=== PATIENT | male | born 1950 | race Caucasian/White ===

== ENCOUNTER 2018-01-11 08:23 | Inpatient (IN) | payer BC ==
[2018-01-11] MEDS ORDERED: Dextrose 50% Syringe 50 ML* 25 GM/50 ML SYRINGE ONE (08:41)
[2018-01-11] MEDS ORDERED: NS 0.9% 1000 ML* 1,000 ML IV ONE (08:48)
[2018-01-11 09:17] LABS: ABS Basophils 0.1 10^3/ul (0-0.2); ABS Eosinophils 0 10^3/ul (0-0.6); ABS Monocytes 0.9 10^3/ul (0-0.8); ABS Neutrophils 14.4 10^3/ul (1.5-7.7); ABS Nucleated RBC 0 10^3/ul; Eosinophil % 0.1 % (0-6); Hematocrit 46 % (42-52); Hemoglobin 15.8 g/dl (14.0-18.0); Lymphocyte % 6.2 % (25-47); Mean Corpuscular HGB Conc 34 g/dl (31-36); Mean Corpuscular Hemoglobin 31 pg (27-31); Mean Corpuscular Volume 90 fL (80-94); Mean Platelet Volume 8.2 um3 (7.4-10.4); Nucleated Red Blood Cells % 0.1; Platelet Count 239 10^3/ul (150-450); Red Blood Count 5.12 10^6/ul (4.0-5.4); Red Cell Distribution Width 14 % (10.5-15); White Blood Count 16.4 10^3/ul (3.5-10.8)
[2018-01-11 09:23] LABS: INR 1.03 (0.77-1.02)
[2018-01-11] MEDS ORDERED: Iodixanol* (CONTRAST) 320 MG/ML 100 ML SDV IV ONE (09:31)
[2018-01-11 09:39] LABS: EGFR Non-African American 64.1 (>60)
--- NOTE | 2018-01-11 09:40 | RAD ---
HISTORY: Neurological changes COMPARISONS: None VIEWS: 2: frontal portable view of the chest at 9:20 AM FINDINGS: LINES AND TUBES: None. CARDIOMEDIASTINAL SILHOUETTE: The cardiomediastinal silhouette is normal for portable technique. PLEURA: The costophrenic angles are sharp. No pleural abnormalities are noted. LUNG PARENCHYMA: The lungs are clear. ABDOMEN: The upper abdomen is clear. There is no subphrenic gas. BONES AND SOFT TISSUES: No bone or soft tissue abnormalities are noted. IMPRESSION: NO ACTIVE CARDIOPULMONARY DISEASE.
[2018-01-11] MEDS ORDERED: Dextrose 50% Syringe 50 ML* 25 GM/50 ML SYRINGE IV PUSH ONE (09:46)
--- NOTE | 2018-01-11 10:13 | RAD ---
HISTORY: Dysarthria, sided weakness COMPARISONS: None TECHNIQUE: Multiple contiguous axial CT scans were obtained of the head, before and after, and of the neck after the administration of nonionic intravenous contrast timed to the systemic arterial phase of contrast enhancement. Coronal and sagittal multiplanar reformations are submitted for review. Multiple 3-D maximum intensity projection reconstructions are also submitted for review. FINDINGS: Evaluation is limited by patient motion artifact. CTA NECK: AORTIC ARCH: There is a normal three-vessel branching pattern of the aortic arch. There is no ostial or proximal stenosis of the cephalic great vessels. RIGHT VERTEBRAL ARTERY: The right vertebral artery is patent along its course, without stenosis. LEFT VERTEBRAL ARTERY: The left vertebral artery is patent along its course, without stenosis. DOMINANCE: The left vertebral artery is dominant. RIGHT COMMON CAROTID ARTERY: The right common carotid artery is patent. The right carotid bifurcation occurs at C2-C3 RIGHT INTERNAL CAROTID ARTERY: There is atheromatous disease of the right carotid bifurcation, without right internal carotid artery stenosis by NASCET criteria. There is calcification of the cavernous segment of the right internal carotid artery. RIGHT EXTERNAL CAROTID ARTERY: The right external carotid artery is unremarkable. LEFT COMMON CAROTID ARTERY: The left common carotid artery is patent. The left carotid bifurcation occurs at C2-C3 LEFT INTERNAL CAROTID ARTERY: There is atheromatous disease of the left carotid bifurcation, without left internal carotid artery stenosis by NASCET criteria. There is calcification of the cavernous segment of the left internal carotid artery. LEFT EXTERNAL CAROTID ARTERY: The left external carotid artery is unremarkable. VENOUS CIRCULATION: The venous system is unremarkable. SALIVARY GLANDS: The parotid glands, submandibular glands, sublingual glands are normal. NASAL CAVITY/NASOPHARYNX: The nasal cavity and nasopharynx are normal. ORAL CAVITY/OROPHARYNX: The oral cavity is obscured by streak artifact from dental amalgam. The visualized oral cavity and oropharynx are unremarkable. LARYNGEAL APPARATUS/HYPOPHARYNX: The laryngeal apparatus and hypopharynx are normal. UPPER AIRWAY/UPPER ESOPHAGUS: The visualized upper airway and esophagus are normal. LUNG APICES: The lung apices are clear. THYROID GLAND: The thyroid gland is normal. LYMPH NODES: There is no lymphadenopathy by size criteria. BONES AND SOFT TISSUES: Degenerative changes are noted along the spine. CTA HEAD: INTRACRANIAL CIRCULATION: There is no aneurysm, vascular malformation, occlusion, or stenosis of the visualized intracranial circulation. Incidentally noted is a small fenestration of the distal basilar artery. The anterior communicating artery complex is clear. The posterior communicating arteries are diminutive, if present. VENOUS CIRCULATION: The venous system is unremarkable. PERFUSION: There is no obvious parenchymal perfusion deficit. HEMORRHAGE/INFARCT: There is no hemorrhage or acute infarct. MASSES/SHIFT: There is no mass or shift. EXTRA-AXIAL SPACES: There are no extra-axial fluid collections. SULCI AND VENTRICLES: The sulci and ventricles are normal in size and position for the patient's stated age. CEREBRUM: There is right temporal encephalomalacia consistent with remote infarct. BRAINSTEM: There are no focal parenchymal abnormalities. CEREBELLUM: There are no focal parenchymal abnormalities. PARANASAL SINUSES: The paranasal sinuses are clear. ORBITS: The orbits are unremarkable. BONES AND SOFT TISSUE: No bone or soft tissue abnormalities are noted. OTHER: There is no abnormal enhancement. IMPRESSION: 1. ATHEROSCLEROSIS. 2. NO INTERNAL CAROTID ARTERY STENOSIS BY NASCET CRITERIA. 3. NO ANEURYSM, VASCULAR MALFORMATION, OCCLUSION, OR STENOSIS OF THE VISUALIZED INTRACRANIAL CIRCULATION.. 4. 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 CPT II Codes: 3100F
[2018-01-11 10:50] LABS: Urine Appearance Clear; Urine Blood Negative (Negative); Urine Color Yellow; Urine Ketones Trace (Negative); Urine Protein 1+(30 mg/dL) (Negative); Urine Specific Gravity 1.028 (1.010-1.030); Urine Urobilinogen Negative (Negative)
--- NOTE | 2018-01-11 11:14 | ED ---
Lisseth Herring Tenzin, scribed for Nicholas Mejia MD on 01/11/18 at 0941 . Neurological HPI - HPI Summary HPI Summary: Pt is a 67 years old male who went to bed last night at his baseline. When he woke up this morning, he had numbness to the left side of his body. This numbness is mostly relieved in the ED. He also noted that he had weakness to his left upper extremity, saying that "I couldn't move my arm." This weakness is mostly relieved in the ED. He notes his speech was a little slurred this morning. He has a history of Diabetes and currently on a new diabetic injector that he gets every month. His blood sugar was measured 41 at arrival. Recently, the patient has been having low sugars. He did not eat this morning. He has chronic lower left extremity pain that got worse few days ago. He is seeing a physical therapist for it. - History of Current Complaint Stated Complaint: STROKE LIKE SYMPTOMS Time Seen by Provider: 01/11/18 08:25 Hx Obtained From: Patient Onset/Duration: Still Present Onset Severity: Moderate Current Severity: Mild Neurological Deficit Location: LUE, LLE Pain Intensity: 5 Pain Scale Used: 0-10 Numeric Character: Weak, Numbness/Tingling, Impaired Speech Associated Signs and Symptoms: Positive: Weakness, Pain, Impaired Speech, Numbness - Allergy/Home Medications Allergies/Adverse Reactions: Allergies Allergy/AdvReac Type Severity Reaction Status Date / Time No Known Allergies Allergy Verified 12/13/13 16:11 Home Medications: Home Medications Exenatide [Byetta] 5 mcg SUBCUT WEEKLY 01/11/18 [History Confirmed 01/11/18] Glimepiride (NF) 4 mg PO BID 01/11/18 [History Confirmed 01/11/18] Insulin GLARGINE(*) [Lantus(*)] 50 units SUBCUT QPM 01/11/18 [History Confirmed 01/11/18] Lovastatin (NF) [Mevacor (NF)] 40 mg PO DAILY 01/11/18 [History Confirmed ] Meloxicam(NF) [Mobic(NF)] 7.5 mg PO BID PRN 01/11/18 [History Confirmed 01/11/18 ] amLODIPine/Benazepril 06/14(NF [Lotrel 06/14(NF)] 1 cap PO DAILY 01/11/18 [ History Confirmed 01/11/18] traMADol TAB* [Ultram*] 50 mg PO Q6HR PRN 01/11/18 [History Confirmed 01/11/18] PMH/Surg Hx/FS Hx/Imm Hx Endocrine/Hematology History: Reports: Hx Diabetes - TYPE II Cardiovascular History: Reports: Hx Hypertension - Cancer History Cancer Type, Location and Year: SKIN CA - Surgical History Surgery Procedure, Year, and Place: FACIAL SKIN CA SURGERY Infectious Disease History: Yes Infectious Disease History: Denies: Traveled Outside the [place] in Last 30 Days - Family History Known Family History: Positive: Other - Pt denies any relevant family history. - Social History Alcohol Use: None Substance Use Type: Reports: None Review of Systems Positive: Other - LLE pain Positive: Weakness - LUE, Numbness - started on the left arm, Slurred Speech - mild. All Other Systems Reviewed And Are Negative: Yes Physical Exam - Summary Physical Exam Summary: Appearance: The patient is well-nourished in no acute distress and in no acute pain. Skin: The skin is warm and dry and skin color reflects adequate perfusion. HEENT: The head is normocephalic and atraumatic. The pupils are equal and reactive. The conjunctivae are clear and without drainage. Nares are patent and without drainage. Mouth reveals moist mucous membranes and the throat is without erythema and exudate. The external ears are intact. The ear canals are patent and without drainage. The tympanic membranes are intact. Neck: the neck is supple with full range of motion and non-tender. There are no carotid bruits. There is no neck vein distension. Respiratory: Chest is non-tender. Lungs are clear to auscultation and breath sounds are symmetrical and equal. Cardiovascular: Heart is regular rate and rhythm. There is no murmur or rub auscultated. There is no peripheral edema and pulses are symmetrical and equal. Abdomen: The abdomen is soft and non-tender. There are normal bowel sounds heard in all four quadrants and there is no organomegaly palpated. Musculoskeletal: There is no back tenderness noted. Extremities are non-tender with full range of motion. There is good capillary refill. There is no peripheral edema or calf tenderness elicited. Neurological: Patient is alert and oriented to person, place and time. Cranial nerves are grossly intact. Deep tendon reflexes are symmetrical and equal in all four extremities. On initial neurologic exam, the patient had dysarthria, ataxia in LUE and LLE, and a slight right-sided facial droop (NIH 4). On second neurologic exam, the patient had right-sided facial droop and ataxia to the LLE. He no longer had ataxia to the LUE or dysarthria (NIH 2). Psychiatric: The patient has an appropriate affect and does not exhibit any anxiety or depression. Triage Information Reviewed: Yes Vital Signs On Initial Exam: Initial Vitals Temp Pulse Resp BP Pulse Ox 98.3 F 101 22 177/94 97 01/11/18 08:35 01/11/18 08:35 01/11/18 08:35 01/11/18 08:35 01/11/18 08:35 Vital Signs Reviewed: Yes Diagnostics - Vital Signs Vital Signs Temp Pulse Resp BP Pulse Ox 01/11/18 08:35 98.3 F 101 22 177/94 97 - Laboratory Lab Results: Lab Results 01/11/18 01/11/18 01/11/18 Range/Units 08:39 09:05 09:05 WBC 16.4 H (3.5-10.8) 10^3/ul RBC 5.12 (4.0-5.4) 10^6/ul Hgb 15.8 (14.0-18.0) g/dl Hct 46 (42-52) % MCV 90 (80-94) fL MCH 31 (27-31) pg MCHC 34 (31-36) g/dl RDW 14 (10.5-15) % Plt Count 239 (150-450) 10^3/ul MPV 8.2 (7.4-10.4) um3 Neut % (Auto) 87.7 H (38-83) % Lymph % (Auto) 6.2 L (25-47) % [place] % (Auto) 5.6 (0-7) % Eos % (Auto) 0.1 (0-6) % Baso % (Auto) 0.4 (0-2) % Absolute Neuts (auto) 14.4 H (1.5-7.7) 10^3/ul Absolute Lymphs (auto) 1.0 (1.0-4.8) 10^3/ul Absolute Monos (auto) 0.9 H (0-0.8) 10^3/ul Absolute Eos (auto) 0 (0-0.6) 10^3/ul Absolute Basos (auto) 0.1 (0-0.2) 10^3/ul Absolute Nucleated RBC 0 10^3/ul Nucleated RBC % 0.1 INR (Anticoag Therapy) 1.03 H (0.77-1.02) APTT 32.0 (26.0-36.3) seconds Sodium (139-145) mmol/L Potassium (3.5-5.0) mmol/L Chloride (101-111) mmol/L Carbon Dioxide (22-32) mmol/L Anion Gap (2-11) mmol/L BUN (6-24) mg/dL Creatinine (0.67-1.17) mg/dL Est GFR ( Amer) (>60) Est GFR (Non-Af Amer) (>60) BUN/Creatinine Ratio (8-20) Glucose (70-100) mg/dL POC Glucose (mg/dL) 41 L (70-100) mg/dL Lactic Acid (0.5-2.0) mmol/L Calcium (8.6-10.3) mg/dL Total Bilirubin (0.2-1.0) mg/dL AST (13-39) U/L ALT (7-52) U/L Alkaline Phosphatase (34-104) U/L Troponin I (<0.04) ng/mL Total Protein (6.4-8.9) g/dL Albumin (3.2-5.2) g/dL Globulin (2-4) g/dL Albumin/Globulin Ratio (1-3) Triglycerides mg/dL Cholesterol mg/dL LDL Cholesterol mg/dL HDL Cholesterol mg/dL Urine Color Urine Appearance Urine pH (5-9) Ur Specific [place] (1.010-1.030) Urine Protein (Negative) Urine Ketones (Negative) Urine Blood (Negative) Urine Nitrate (Negative) Urine Bilirubin (Negative) Urine Urobilinogen (Negative) Ur Leukocyte Esterase (Negative) Urine WBC (Auto) (Absent) Urine RBC (Auto) (Absent) Urine Bacteria (Absent) Hyaline Casts (Absent) Urine Glucose (Negative) 01/11/18 01/11/18 01/11/18 Range/Units 09:05 09:05 10:27 WBC (3.5-10.8) 10^3/ul RBC (4.0-5.4) 10^6/ul Hgb (14.0-18.0) g/dl Hct (42-52) % MCV (80-94) fL MCH (27-31) pg MCHC (31-36) g/dl RDW (10.5-15) % Plt Count (150-450) 10^3/ul MPV (7.4-10.4) um3 Neut % (Auto) (38-83) % Lymph % (Auto) (25-47) % [place] % (Auto) (0-7) % Eos % (Auto) (0-6) % Baso % (Auto) (0-2) % Absolute Neuts (auto) (1.5-7.7) 10^3/ul Absolute Lymphs (auto) (1.0-4.8) 10^3/ul Absolute Monos (auto) (0-0.8) 10^3/ul Absolute Eos (auto) (0-0.6) 10^3/ul Absolute Basos (auto) (0-0.2) 10^3/ul Absolute Nucleated RBC 10^3/ul Nucleated RBC % INR (Anticoag Therapy) (0.77-1.02) APTT (26.0-36.3) seconds Sodium 135 L (139-145) mmol/L Potassium 4.3 (3.5-5.0) mmol/L Chloride 101 (101-111) mmol/L Carbon Dioxide 26 (22-32) mmol/L Anion Gap 8 (2-11) mmol/L BUN 19 (6-24) mg/dL Creatinine 1.14 (0.67-1.17) mg/dL Est GFR ( Amer) 82.4 (>60) Est GFR (Non-Af Amer) 64.1 (>60) BUN/Creatinine Ratio 16.7 (8-20) Glucose 177 H (70-100) mg/dL POC Glucose (mg/dL) (70-100) mg/dL Lactic Acid 1.2 (0.5-2.0) mmol/L Calcium 9.5 (8.6-10.3) mg/dL Total Bilirubin 0.50 (0.2-1.0) mg/dL AST 16 (13-39) U/L ALT 14 (7-52) U/L Alkaline Phosphatase 81 (34-104) U/L Troponin I 0.02 (<0.04) ng/mL Total Protein 7.0 (6.4-8.9) g/dL Albumin 4.3 (3.2-5.2) g/dL Globulin 2.7 (2-4) g/dL Albumin/Globulin Ratio 1.6 (1-3) Triglycerides 98 mg/dL Cholesterol 188 mg/dL LDL Cholesterol 123 mg/dL HDL Cholesterol 45.0 mg/dL Urine Color Yellow Urine Appearance Clear Urine pH 5.0 (5-9) Ur Specific [place] 1.028 (1.010-1.030) Urine Protein 1+(30 mg/dl) A (Negative) Urine Ketones Trace A (Negative) Urine Blood Negative (Negative) Urine Nitrate Negative (Negative) Urine Bilirubin Negative (Negative) Urine Urobilinogen Negative (Negative) Ur Leukocyte Esterase Negative (Negative) Urine WBC (Auto) Trace(0-5/hpf) (Absent) Urine RBC (Auto) Trace(0-2/hpf) (Absent) Urine Bacteria Absent (Absent) Hyaline Casts Present A (Absent) Urine Glucose 3+(>=500 mg/dl) A (Negative) Result Diagrams: 01/11/18 09:05 01/11/18 09:05 Lab Statement: Any lab studies that have been ordered have been reviewed, and results considered in the medical decision making process. - Radiology CXR Xray Interpretation: No Acute Changes - Impression: No active cardiopulmonary disease. Dr. Mejia reviewed the report. Radiology Interpretation Completed By: Radiologist - CT Head/Neck CT Interpretation: No Acute Changes - IMPRESSION: 1. ATHEROSCLEROSIS. 2. NO INTERNAL CAROTID ARTERY STENOSIS BY NASCET CRITERIA. 3. NO ANEURYSM, VASCULAR MALFORMATION, OCCLUSION, OR STENOSIS OF THE VISUALIZED INTRACRANIAL CIRCULATION.. 4. 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 Dr. Mejia reviewed the report. CT Interpretation Completed By: Radiologist - EKG 0906 Cardiac Rate: NL - rate at 95 BPM EKG Rhythm: Sinus Rhythm EKG Interpretation: Pt has RBBB and LAD. NIH Scale - NIH Scale Level of Consciousness: Alert/Keenly Responsive Ask Patient the Month and His/Her Age: Both Correct Ask Pt to Open/Close Eyes and Graphotype Operator/Release Non-Paretic Hand: Both Correctly Best Gaze (Only Horizontal Eye Movement): Normal Visual Field Testing: No Visual Loss Facial Paresis-Pt to Smile & Close Eyes or [place]im[place] Symmetry: Minor Paralysis Motor Function - Right Arm: No Drift-Holds 10 Seconds Motor Function - Left Arm: No Drift-Holds 10 Seconds Motor Function - Right Leg: No Drift-Holds 10 Seconds Motor Function - Left Leg: No Drift-Holds 10 Seconds Limb Ataxia-Must be out of Proportion to Weakness Present: Present in Two Limbs Sensory (Use Pinprick to Test Arms/Legs/Trunk/Face): Normal Best Language (Describe Picture, Name Items): No Aphasia Dysarthria (Read Several Words): Slurs Some Words Extinction and Inattention: No Abnormality Total Score: 4 Course/Dx - Course Course Of Treatment: Mr. Sarabia improved a lot with D50 but did not completely normalize. His dysarthria and dysmetria in the LUE went away but his LLE was still unstable and he still had a slight right facial droop. I'm not sure if this is all hypoglycemia or a TIA. His ED W/U was negative and I spoke with Dr. Fraser and he is being admitted to the hospitalist service. - Diagnoses Provider Diagnoses: Hypoglycemia, TIA (transient ischemic attack) - Physician Notifications Discussed Care Of Patient With: Deanne Fraser Time Discussed With Above Provider: 10:00 Instructed by Provider To: Admit As Inpatient - Dr. Fraser, neurology recommended CTA, CT head, admit to the hospitalist. - Critical Care Time Critical Care Time: 30-74 min Discharge - Sign-Out/Discharge Documenting (check all that apply): Discharge/Admit/Transfer - Discharge Plan Condition: Stable Disposition: ADMITTED TO [facility] Referrals: Jt Cárdenas MD [Primary Care Provider] - - Billing Disposition and Condition Condition: STABLE Disposition: [facility] [place] The documentation as recorded by the Lisseth ureña Tenzin accurately reflects the service I personally performed and the decisions made by me, Nicholas Mejia MD.
[2018-01-11] MEDS ORDERED: Dextrose 50% Syringe 50 ML* 25 GM/50 ML SYRINGE IV PUSH PRN (11:18)
[2018-01-11] MEDS ORDERED: Insulin LISPRO* 1 UNITS UNIT SUBCUT SCH ×2 (11:30→16:00)
[2018-01-11] MEDS ORDERED: hydrALAZINE IV* 20 MG/ML VIAL IV SLOW PU PRN (12:32)
[2018-01-11] MEDS: Heparin VIAL(*) 5000 UNITS/ML VIAL (FIVE THOUSAND) SUBCUT SCH ×2 (13:43→21:55)
[2018-01-11] MEDS: Methocarbamol TAB* 500 MG PO PRN ×3 (13:43→23:46)
[2018-01-11] MEDS: Aspirin EC TAB* 81 MG TAB.EC PO SCH (13:43)
[2018-01-11] MEDS ORDERED: D5W 1/2 NS 1000 ML BAG* 1,000 ML IV SCH (16:00)
[2018-01-11] MEDS ORDERED: D10W 1000 ML BAG* 1,000 ML IV SCH (17:00)
--- NOTE | 2018-01-11 20:07 | HP ---
CC: Dr. Jt Cárdenas; Dr. Lenin Rosas * HISTORY AND PHYSICAL: DATE OF ADMISSION: 01/11/18 PRIMARY CARE PROVIDER: Dr. Jt Cárdenas. [facility]: Dr. Lenin Rosas. ATTENDING PHYSICIAN: Dr. Astrid Dyer * (dictated by Alesia Parmar NP). CHIEF COMPLAINT: Left arm weakness, possible right facial droop, dysarthria, and hypoglycemia. HISTORY OF PRESENT ILLNESS: Mr. Sarabia is a 67-year-old male with past medical history significant for hypertension, hyperlipidemia, insulin-dependent diabetes mellitus type 2, and history of a right temporal CVA according to imaging today, who presented to the emergency room after "thrashing in the bed" at 2 a.m. and noting that he had a right facial droop, dysarthria and left- sided weakness. His called their daughter who is a nurse and recommended they come to the ED for evaluation. The patient states that within the last 4 to 6 weeks he started taking Byetta and has noticed that his glucoses have been in the 90s in the morning. The patient states that he "passed out" for approximately 4 hours yesterday and as his blood sugars have been running in the 50s and 60s, last evening after he took 50 units of Lantus he noted that his glucose was 54. Around 6 pm he ate a bunch of ice cream to try to correct this prior to bed. He then went to bed and woke his up when he was trashing in bed at approximately 2 a.m. When she awoke him, she noticed that he had dysarthria, slight right facial droop and left-sided weakness. The patient reports he has not been taking his blood pressure medicines or his statin. He states that he has not notified his doctor about his blood sugars. He also reports having left lower extremity pain due to a tight IT band and been seeing a message therapist for this. The patient reports chills, indigestion and denies any urinary symptoms, fevers, chest pain, shortness of breath, nausea, vomiting or diarrhea. Due to his symptoms, he was brought to the emergency room for further evaluation. While in the emergency room, the patient was noted to have weakness in his left upper extremity that mostly resolved during his stay. He was also noted to have a slight slurred speech that resolves well in the emergency room. The patient reportedly was also complaining of numbness to the left side of his body that resolved in the emergency room. His blood glucose was 41 on arrival to the emergency room. He received IV dextrose. He had other labs while in the emergency room, significant for a leukocytosis of 16.4. He had a negative urinalysis and EKG without significant findings. He had a negative chest x-ray and a head CTA showing "no stenosis, right temporal artery encephalomalacia consistent with a remote infarct". He had an NIH score of a 4. The hospitalists were asked to evaluate the patient for admission. PAST MEDICAL HISTORY: 1. Hypertension. 2. Hyperlipidemia. 3. Diabetes mellitus type 2. 4. Remote right temporal infarct according to imaging today. PAST SURGICAL HISTORY: Status post excision of basal cell carcinoma x2 to the left side of his nose and face. HOME MEDICATIONS: Include: 1. Vitamin D 2000 units oral daily. 2. Tramadol 50 mg oral every 6 hours as needed for pain. 3. Meloxicam 7.5 mg oral twice daily as needed for pain. 4. Lotrel 10/20 one tablet oral daily, the patient states he has not been taking this. 5. Glimepiride 4 mg oral twice daily. 6. Metformin 1000 mg oral twice daily. 7. Byetta 5 mcg subcutaneous weekly on Fridays. 8. Lantus 50 units subcutaneous every evening. ALLERGIES: No known drug allergies. FAMILY HISTORY: The patient had paternal aunts and uncles with coronary artery disease, maternal grandmother with diabetes, father with a history of brain cancer, and mother with a history of ovarian cancer. SOCIAL HISTORY: The patient denies tobacco, alcohol or recreational drug use. His , Becky Sarabia, will be his surrogate decision maker in the event he is unable to make decisions for himself. REVIEW OF SYSTEMS: I performed an 11-point review of systems. All the pertinent positives and negatives are mentioned in the history of present illness. The remaining review of systems are negative. PHYSICAL EXAMINATION GENERAL APPEARANCE: The patient is alert, pleasant and appears to be in no acute distress. VITAL SIGNS: Temperature 98, heart rate 101, respiratory rate 18, O2 sat 97% on room air, blood pressure 170/98. HEENT: Normocephalic, atraumatic. Pupils are equal and reactive to light. Extraocular movements are intact. RESPIRATORY: There is no accessory muscle use and the lungs are clear to auscultation bilaterally. CARDIOVASCULAR: Regular rate and rhythm. S1 and S2 present. There are no murmurs, rubs, or gallops heard. ABDOMEN: Soft, nondistended, nontender. There are bowel sounds present x4. EXTREMITIES: There is no lower extremity edema. DP and PT pulses are 2+ and symmetric. MUSCULOSKELETAL: There is no clubbing or cyanosis noted. The patient exhibits good strength in all extremities. NEUROLOGICAL: The patient is alert and oriented x4. Cranial nerves II through XII are grossly intact. The patient is able to perform heel from [id number] bilaterally without difficulty, although the left leg is slightly slower than the right leg. He is able to lift both lower extremities off the bed. 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 He has good dorsi and plantarflexion bilaterally, although he has slight weakness noted on the left with dorsi and plantarflexion when compared to the right. His smile is symmetric. His tongue is midline. PSYCHOLOGICAL: The patient is calm and cooperative. SKIN: There are no rashes or abnormalities seen. DIAGNOSTIC STUDIES/LABORATORY DATA: Sodium 135, potassium 4.3, chloride 101, CO2 of 26, BUN 19, creatinine 1.14, glucose 177. White blood cell count 16.4, hemoglobin 15.8, hematocrit 46, platelet count 239. Urinalysis significant for protein 1+, ketones trace, hyaline casts present, glucose 3+. An EKG shows a sinus rhythm, rate of 95, right bundle branch block, and no acute signs of ischemia. There are no previous EKGs for comparison. Chest x-ray from today. Radiologist's impression: No active cardiopulmonary disease. Head and neck CTA from today. Radiologist's impression: Atherosclerosis. No internal carotid artery stenosis by NASCET criteria. No aneurysm, vascular malformation, occlusion or stenosis of the visualized intracranial circulation. Right temporal encephalomalacia consistent with remote infarct. IMPRESSION: Mr. Sarabia is a 67-year-old male with past medical history significant for hypertension, hyperlipidemia, diabetes mellitus, who presented to the emergency room with left-sided weakness and dysarthria and hypoglycemia. He will be admitted as an observation for rule out cerebrovascular accident and hypoglycemia. ASSESSMENT/PLAN: 1. Left-sided weakness with associated dysarthria. At this point, the patient' s symptoms have essentially resolved. The differential diagnosis includes transient ischemic attack versus cerebrovascular accident versus hypoglycemia. The patient's glucose was in the 40s in the emergency room. Neurology will see the patient in consultation. He will have an MRI. We will get an echo with a bubble study. He had fasting lipids while in the emergency room as he had not eaten since 6 p.m. last night. His LDL is 123. The patient reports not taking his statin as he believes that it caused leg weakness, I will resume his lovastatin that he was taking at home previously. He will be started in aspirin. He will have neuro checks q.4 hours, be monitored on telemetry. I am going to hold his antihypertensives to allow for permissive hypertension overnight. 2. Hypoglycemia. I suspect this is secondary to recent changes in the patient' s antidiabetic medications. I am going to hold all of his home medications, check his glucose every 4 hours and do lispro sliding scale and we can resume medications as able. 3. Left sciatic pain. The patient has been following with a massage therapist and has a tight IT band. He will be continued on his home tramadol, meloxicam, and we will start him on a muscle relaxer to see if that helps. He has been encouraged to do some stretches to help loosen up his IT band. 4. Hypertension. The patient has had systolic blood pressures in the 160s to 170s in the emergency room. He reports not taking his Lotrel at home. I am going to continue to hold it at least in the first 24 hours to allow for permissive hypertension and we will have hydralazine as needed available for systolic blood pressures greater than 180 or diastolic blood pressures greater than 100. 5. Leukocytosis. The patient has leukocytosis. He has no signs of infection right now, he had a negative urinalysis and chest xray. This could be a leukemoid reaction. We will continue to monitor him for any signs of infection. I am going to hold on any antibiotics now and we will recheck in the morning. 6. Diabetes mellitus. I am going to hold all of his home medications, check his glucose every 4 hours and do lispro sliding scale and we can resume medications as able. I will add a HgA1C to the ED labs. 7. Fluids, electrolytes and nutrition. He will be on a consistent carbohydrate diet. 8. Code status. Full code. 9. DVT prophylaxis. He is at high risk and will have subcu heparin. 10. Disposition. Observation. TIME SPENT: Time for this admission was approximately 60 minutes, greater than half of that was spent with the patient and family discussing medications, past medical history, the events leading up to his arrival today, and performing a physical examination. The case has been reviewed with the attending, Dr. Dyer, who agrees with the plan of care. Reviewed by WAQAR ASHLEY 01/11/18 2116 [id number]/[facility] #: [id number] PRATIBHA
--- NOTE | 2018-01-11 21:21 | CONS ---
NEUROLOGY CONSULTATION: DATE OF CONSULT: 01/11/18 REASON FOR CONSULT: Left-sided weakness in the setting of hypoglycemia. HISTORY OF PRESENT ILLNESS: Angel Sarabia is a 67-year-old man with a history of diabetes, who was placed on Byetta in the last 6 weeks and presented to the emergency department this morning with new left-sided symptoms. He had last been seen normal reportedly around 9 o'clock last night in my discussion with Dr. Mejia, who contacted me from the emergency room. He woke up with symptoms of dysarthria as well as left arm weakness and numbness. He also has been having pain in his left leg, which apparently is related to some IT band dysfunction. He states that he felt sort of detached from reality during this time as well and initially told me that he had passed out, but it does not sound like he actually lost consciousness. His came into the room and initially called their daughter, who is a nurse, who advised that they call 911 and he was subsequently brought to the hospital where his symptoms have essentially resolved at this point. He was found to have a blood glucose of 41 and with administration of dextrose, his symptoms improved in the emergency department, but did not completely resolve. On Dr. Mejia's exam, he felt that he had some dysarthria as well as some left arm and leg dysmetria and some left facial weakness and he assigned him a score of 4 on the NIH stroke scale. He was not considered a candidate for tPA given the last known normal being 9 p.m. as well as the potential more likely etiology of hypoglycemia producing these symptoms. On my initial discussion with Dr. Mejia, there was no known prior history of stroke or other brain injury, which would predispose him to focal symptoms with hypoglycemia. Otherwise, the patient says that he also passed out yesterday. He certainly has a loss of a chunk of time yesterday, but his reports that when she came back from work, she found him lying on his back on the floor and he was awake and able to talk to her and she initially thought that he was lying there because of the pain in his left leg. He reports though that he must have slid out of his chair at some point and does not recall how he got onto the floor. I do not believe that they checked his blood glucose with this episode yesterday , but he assumes that it was low. His further states that he has had 2 very restless nights of sleep where he was "thrashing and yelling" to the point where she thought the neighbors would hear them. This lasted about half an hour and the night before last he actually vomited and she had to change the sheets. He states that he vaguely remembers thrashing about and her speaking to him, but he does not recall what she said. It is not clear if he was hypoglycemic during this time. There is no prior history of seizures and they deny any past history of stroke. PAST MEDICAL HISTORY: 1. Type 2 diabetes for the past 10 to 15 years. 2. Left IT band dysfunction resulting in left leg pain. 3. Hyperlipidemia. 4. Hypertension. 5. Skin cancer, status post Mohs surgery on the left. HOME MEDICATIONS: 1. Vitamin D 2000 units daily. 2. Tramadol 50 mg q.6 p.r.n. 3. Meloxicam 7.5 mg b.i.d. p.r.n. 4. Amlodipine/benazepril 10/20 mg daily. 5. Glimepiride 4 mg b.i.d. 6. Metformin 1000 mg b.i.d. 7. Lantus 50 units subcu q.p.m. 8. Byetta 5 mcg weekly. 9. Lovastatin is on the home med list, but the patient tells me that he discontinued this secondary to muscle cramps. ALLERGIES: The patient denies any lukas drug allergies, but had muscle cramping with lovastatin. FAMILY HISTORY: There is no known history of stroke. His father of brain cancer and mother of ovarian cancer. There is some remote history of heart disease, but in aunts and uncles in their 80s. SOCIAL HISTORY: He denies alcohol use or tobacco use or illicit drug use. 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 He is and lives with his . His daughter who was present is an RN. REVIEW OF SYSTEMS: There has been no recent systemic illness or infection. He snores at night, but his is not sure if he has apneas. In the past, it was recommended that he have a sleep study, but he did not follow through with that. He has been noting intermittent problems with his blood sugar since starting Byetta and dropped 16 pounds in the past 6 weeks as well. In addition , his appetite has been decreased since being on Byetta. PHYSICAL EXAM: Vital Signs: Temperature 98.1, blood pressure 179/96, heart rate 106, oxygen saturation 99% on room air. His telemetry has shown sinus tachycardia; no evidence of atrial fibrillation at this point. On general exam, he is a pleasant man, in no acute distress. He is morbidly obese with a very thick neck. His heart is tachycardic, but without any obvious murmurs. The lungs were clear to auscultation bilaterally. He was a bit sweaty and at the time of my evaluation he had just had a blood glucose by fingerstick of 21 and had been given some orange juice. He did not reportedly have any recurrence of left- sided focal symptoms with this hypoglycemia. His skin is intact. He is lying in the bed with a pillow under his left leg because of his leg pain. On neurologic examination, he is fully awake, alert, and oriented. He had some difficulty recalling certain details of his history such as how long he has had the leg pain and initially stated it was 2 weeks, but his family states that it has been longer than that. His speech was fluent without any dysarthria or aphasia. He was fully oriented. On cranial nerve examination, pupils were 3 to 2 mm bilaterally. Versions were full without nystagmus. Gonzalez were full to confrontation with no extinction to double simultaneous stimulation. Facial sensation was full and symmetric. His face did show slight asymmetry with a deeper nasolabial fold on the left, but the family actually reports that this is related to his previous Mohs surgery and that his face appears at his baseline to them. There was equal strength bilaterally with cheek puff, eye closure and forehead wrinkling as well as smile. Hearing was intact to finger rub. The palate elevates symmetrically and the tongue is midline. On motor examination, he has normal bulk and tone in the upper and lower extremities. Strength is full proximally and distally with no pronator drift. Sensation was intact to light touch and temperature in the upper and lower extremities. Reflexes were 2+ in the upper extremities and knees, absent at the ankles. Toes were downgoing. [id number] and [id number] were intact without ataxia. I did not ambulate him. DIAGNOSTIC STUDIES/LAB DATA: Hemoglobin A1c 7.2%. Lipid studies show triglycerides of 98, total cholesterol 188, HDL 45, LDL 123. His CBC was notable for a white blood cell count of 16.4 with 87% neutrophils and absolute neutrophil count of 14.4. His INR was 1.03. Chemistry panel on his admission showed a sodium of 135, initial glucose of 44 which on his serum study after replacement with dextrose was 177. Normal liver functions. Lactate of 1.2. As mentioned, his glucose was 21, rechecked at 38 and then after orange juice and dextrose was 117, now most recently 70. His urinalysis showed 1+ protein, trace ketones, and 3+ glucose. I reviewed his CTA as well as his brain CT, which was notable for apparent old infarct in the right posterior temporal region. The CT angiogram showed no hemodynamically significant stenosis, but there was atheromatous disease in the bilateral internal carotid arteries including in the intracranial portions. There was no significant disease in the posterior circulation. IMPRESSION AND PLAN: Angel Sarabia is a 67-year-old man with a history of diabetes who has recently had difficulties with hypoglycemia and presented this morning with left-sided weakness and sensory changes, which have resolved in the setting of improved glucose. I note that he did have a recurrent episode of hypoglycemia where he did not have recurrent symptoms on the left side, but this was caught rather quickly and it is unclear how long he was hypoglycemic at home before he began experiencing these left-sided symptoms. I also note that he has had some strange episodes at night where his describes thrashing and yelling as well as vomiting, which is very out of character for him. While these symptoms could be attributable to symptomatic hypoglycemia, I discussed with the patient and his family that the presence of focal symptoms in the setting of hypoglycemia is unusual and we should look further into a transient ischemic attack workup. I note that his CT scan does suggest the presence that he may have had asymptomatic infarct at some point in the past and we will look further into this with MRI scan of the brain as well as transthoracic echocardiogram. I recommend that he start aspirin 81 mg daily. I also question whether this odd behavior in his sleep could have been a provoked seizure in the setting of symptomatic hypoglycemia. I think the first thing to do is to get his glucose regulated and if he were to have another episode like that during sleep without hypoglycemia, then certainly he should have an EEG. As an outpatient, he should have a sleep study as he is set up for sleep apnea. Thank you for this consultation. Further recommendations pending his testing. [id number]/[facility] #: [id number] PRATIBHA
[2018-01-11] MEDS: traMADol TAB* 50 MG PO PRN (22:04)
[2018-01-12] MEDS: traMADol TAB* 50 MG PO PRN (03:54)
[2018-01-12] MEDS: Heparin VIAL(*) 5000 UNITS/ML VIAL (FIVE THOUSAND) SUBCUT SCH ×3 (06:14→22:01)
[2018-01-12 08:00] LABS: ABS Basophils 0 10^3/ul (0-0.2); ABS Eosinophils 0.2 10^3/ul (0-0.6); ABS Monocytes 1.2 10^3/ul (0-0.8); ABS Neutrophils 8.7 10^3/ul (1.5-7.7); ABS Nucleated RBC 0 10^3/ul; Eosinophil % 1.4 % (0-6); Hematocrit 43 % (42-52); Hemoglobin 14.5 g/dl (14.0-18.0); Lymphocyte % 16.3 % (25-47); Mean Corpuscular HGB Conc 34 g/dl (31-36); Mean Corpuscular Hemoglobin 31 pg (27-31); Mean Corpuscular Volume 90 fL (80-94); Mean Platelet Volume 8.9 um3 (7.4-10.4); Nucleated Red Blood Cells % 0; Platelet Count 204 10^3/ul (150-450); Red Blood Count 4.75 10^6/ul (4.0-5.4); Red Cell Distribution Width 14 % (10.5-15); White Blood Count 12.1 10^3/ul (3.5-10.8)
[2018-01-12] MEDS: Cholecalciferol TAB* 1000 UNITS PO SCH (10:01)
[2018-01-12] MEDS: Methocarbamol TAB* 500 MG PO PRN (10:01)
[2018-01-12] MEDS: Atorvastatin* 10 MG TAB PO SCH (10:01)
[2018-01-12] MEDS: Aspirin EC TAB* 81 MG TAB.EC PO SCH (10:01)
--- NOTE | 2018-01-12 10:03 | PN ---
Subjective Date of Service: 01/12/18 Interval History: Mr. Sarabia reports doing better today. He still has intermittent LLE muscle spasms, but getting better compared to yesterday. Denies dizziness, visual changes, nausea, vomiting, weakness, chest pain or SOB. His POC blood glucose has been in a decent range with all his Lantus and oral hypoglycemic agents on hold. His blood glucose check this AM with 230, D10 0.9% NS was discontinued. He requested some meds to help him with muscle spasms. Otherwise, he has no new complaints. I was called by his nurse, blood glucose still running high, provided coverage with Lispro per sliding scale. Seen by neurology, await brain MRI in AM. Family History: Unchanged from Admission Social History: Unchanged from Admission Past Medical History: Unchanged from Admission Objective Active Medications: Aspirin (Aspirin Ec Tab*) 81 mg PO DAILY [facility] Last Admin: 01/11/18 13:43 Dose: 81 mg Atorvastatin Calcium (Lipitor*) 10 mg PO DAILY [facility] PRN Reason: Protocol Cholecalciferol (Vitamin D Tab*) 2,000 units PO DAILY [facility] Cyclobenzaprine HCl (Flexeril Tab*) 10 mg PO TID PRN PRN Reason: SPASMS Dextrose (D50w Syringe 50 Ml*) 12.5 gm IV PUSH .FOR FS < 60 - SS PRN PRN Reason: FS < 60 Last Admin: 01/11/18 15:37 Dose: 12.5 gm Heparin Sodium (Porcine) (Heparin Vial(*)) 5,000 units SUBCUT Q8HR [facility] Last Admin: 01/12/18 06:14 Dose: 5,000 units Hydralazine HCl (Apresoline Iv*) 5 mg IV SLOW PU Q6H PRN PRN Reason: BLOOD PRESSURE Dextrose (D10w 1000 Ml Bag*) 1,000 mls @ 50 mls/hr IV PER RATE [facility] Last Admin: 01/11/18 17:24 Dose: 50 mls/hr Tramadol HCl (Ultram*) 50 mg PO Q6HR PRN PRN Reason: PAIN Last Admin: 01/12/18 03:54 Dose: 50 mg Vital Signs - 8 hr 01/12/18 01/12/18 01/12/18 02:35 03:43 03:54 Temperature 98.4 F Pulse Rate 93 Respiratory 20 20 20 Rate Blood Pressure 175/76 (mmHg) O2 Sat by Pulse 97 Oximetry 01/12/18 01/12/18 03:57 06:16 Temperature Pulse Rate Respiratory 18 Rate Blood Pressure 158/72 (mmHg) O2 Sat by Pulse Oximetry Oxygen Devices in Use Now: None Appearance: Obese middle aged male, appears comfortable and in NAD Eyes: No Scleral Icterus, PERRLA Ears/Nose/Mouth/Throat: Clear Oropharnyx, Mucous Membranes Moist Neck: NL Appearance and Movements; NL JVP, Trachea Midline Respiratory: Symmetrical Chest Expansion and Respiratory Effort, Clear to Auscultation Cardiovascular: NL Sounds; No Murmurs; No JVD, RRR Abdominal: NL Sounds; No Tenderness; No Distention Extremities: No Edema, No Clubbing, Cyanosis Skin: No Rash or Ulcers Neurological: Alert and Oriented x 3, NL Sensation, NL Muscle Strength and Tone Nutrition: Taking PO's Result Diagrams: 01/12/18 06:07 01/11/18 09:05 Additional Lab and Data: Lab Results 01/11/18 01/11/18 01/11/18 Range/Units 08:39 09:05 09:05 WBC 16.4 H (3.5-10.8) 10^3/ul RBC 5.12 (4.0-5.4) 10^6/ul Hgb 15.8 (14.0-18.0) g/dl Hct 46 (42-52) % MCV 90 (80-94) fL MCH 31 (27-31) pg MCHC 34 (31-36) g/dl RDW 14 (10.5-15) % Plt Count 239 (150-450) 10^3/ul MPV 8.2 (7.4-10.4) um3 Neut % (Auto) 87.7 H (38-83) % Lymph % (Auto) 6.2 L (25-47) % [place] % (Auto) 5.6 (0-7) % Eos % (Auto) 0.1 (0-6) % Baso % (Auto) 0.4 (0-2) % Absolute Neuts (auto) 14.4 H (1.5-7.7) 10^3/ul Absolute Lymphs (auto) 1.0 (1.0-4.8) 10^3/ul Absolute Monos (auto) 0.9 H (0-0.8) 10^3/ul Absolute Eos (auto) 0 (0-0.6) 10^3/ul Absolute Basos (auto) 0.1 (0-0.2) 10^3/ul Absolute Nucleated RBC 0 10^3/ul Nucleated RBC % 0.1 INR (Anticoag Therapy) 1.03 H (0.77-1.02) APTT 32.0 (26.0-36.3) seconds Sodium (139-145) mmol/L Potassium (3.5-5.0) mmol/L Chloride (101-111) mmol/L Carbon Dioxide (22-32) mmol/L Anion Gap (2-11) mmol/L BUN (6-24) mg/dL Creatinine (0.67-1.17) mg/dL Est GFR ( Amer) (>60) Est GFR (Non-Af Amer) (>60) BUN/Creatinine Ratio (8-20) Glucose (70-100) mg/dL POC Glucose (mg/dL) 41 L (70-100) mg/dL Lactic Acid (0.5-2.0) mmol/L Calcium (8.6-10.3) mg/dL Total Bilirubin (0.2-1.0) mg/dL AST (13-39) U/L ALT (7-52) U/L Alkaline Phosphatase (34-104) U/L Troponin I (<0.04) ng/mL Total Protein (6.4-8.9) g/dL Albumin (3.2-5.2) g/dL Globulin (2-4) g/dL Albumin/Globulin Ratio (1-3) Triglycerides mg/dL Cholesterol mg/dL LDL Cholesterol mg/dL HDL Cholesterol mg/dL Urine Color Urine Appearance Urine pH (5-9) Ur Specific [place] (1.010-1.030) Urine Protein (Negative) Urine Ketones (Negative) Urine Blood (Negative) Urine Nitrate (Negative) Urine Bilirubin (Negative) Urine Urobilinogen (Negative) Ur Leukocyte Esterase (Negative) Urine WBC (Auto) (Absent) Urine RBC (Auto) (Absent) Urine Bacteria (Absent) Hyaline Casts (Absent) Urine Glucose (Negative) 01/11/18 01/11/18 01/11/18 Range/Units 09:05 09:05 10:27 WBC (3.5-10.8) 10^3/ul RBC (4.0-5.4) 10^6/ul Hgb (14.0-18.0) g/dl Hct (42-52) % MCV (80-94) fL MCH (27-31) pg MCHC (31-36) g/dl RDW (10.5-15) % Plt Count (150-450) 10^3/ul MPV (7.4-10.4) um3 Neut % (Auto) (38-83) % Lymph % (Auto) (25-47) % [place] % (Auto) (0-7) % Eos % (Auto) (0-6) % Baso % (Auto) (0-2) % Absolute Neuts (auto) (1.5-7.7) 10^3/ul Absolute Lymphs (auto) (1.0-4.8) 10^3/ul Absolute Monos (auto) (0-0.8) 10^3/ul Absolute Eos (auto) (0-0.6) 10^3/ul Absolute Basos (auto) (0-0.2) 10^3/ul Absolute Nucleated RBC 10^3/ul Nucleated RBC % INR (Anticoag Therapy) (0.77-1.02) APTT (26.0-36.3) seconds Sodium 135 L (139-145) mmol/L Potassium 4.3 (3.5-5.0) mmol/L Chloride 101 (101-111) mmol/L Carbon Dioxide 26 (22-32) mmol/L Anion Gap 8 (2-11) mmol/L BUN 19 (6-24) mg/dL Creatinine 1.14 (0.67-1.17) mg/dL Est GFR ( Amer) 82.4 (>60) Est GFR (Non-Af Amer) 64.1 (>60) BUN/Creatinine Ratio 16.7 (8-20) Glucose 177 H (70-100) mg/dL POC Glucose (mg/dL) (70-100) mg/dL Lactic Acid 1.2 (0.5-2.0) mmol/L Calcium 9.5 (8.6-10.3) mg/dL Total Bilirubin 0.50 (0.2-1.0) mg/dL AST 16 (13-39) U/L ALT 14 (7-52) U/L Alkaline Phosphatase 81 (34-104) U/L Troponin I 0.02 (<0.04) ng/mL Total Protein 7.0 (6.4-8.9) g/dL Albumin 4.3 (3.2-5.2) g/dL Globulin 2.7 (2-4) g/dL Albumin/Globulin Ratio 1.6 (1-3) Triglycerides 98 mg/dL Cholesterol 188 mg/dL LDL Cholesterol 123 mg/dL HDL Cholesterol 45.0 mg/dL Urine Color Yellow Urine Appearance Clear Urine pH 5.0 (5-9) Ur Specific [place] 1.028 (1.010-1.030) Urine Protein 1+(30 mg/dl) A (Negative) Urine Ketones Trace A (Negative) Urine Blood Negative (Negative) Urine Nitrate Negative (Negative) Urine Bilirubin Negative (Negative) Urine Urobilinogen Negative (Negative) Ur Leukocyte Esterase Negative (Negative) Urine WBC (Auto) Trace(0-5/hpf) (Absent) Urine RBC (Auto) Trace(0-2/hpf) (Absent) Urine Bacteria Absent (Absent) Hyaline Casts Present A (Absent) Urine Glucose 3+(>=500 mg/dl) A (Negative) Microbiology and Other Data: . Diagnostic Imaging: Patient Name: NHAN SARABIA Medical Record#: [id number] [facility]ing Physician: [id number] : 1950 Age: 67 Sex: M Location: EMERGENCY DEPARTMENT Exam Date: 01/11/1851 ADM Status: [facility] ER Order Information: CTA HEAD/NECK Accession Number: [id number] CPT: 58327 HISTORY: Dysarthria, sided weakness COMPARISONS: None TECHNIQUE: Multiple contiguous axial CT scans were obtained of the head, before and after, and of the neck after the administration of nonionic intravenous contrast timed to the systemic arterial phase of contrast enhancement. Coronal and sagittal multiplanar reformations are submitted for review. Multiple 3-D maximum intensity projection reconstructions are also submitted for review. FINDINGS: Evaluation is limited by patient motion artifact. CTA NECK: [facility] Patient Name:NHAN SARABIA MR:[id number] : 1950 [employer] TISSUES: Degenerative changes are noted along the spine. CTA HEAD: IMPRESSION: 1. ATHEROSCLEROSIS. 2. NO INTERNAL CAROTID ARTERY STENOSIS BY NASCET CRITERIA. 3. NO ANEURYSM, VASCULAR MALFORMATION, OCCLUSION, OR STENOSIS OF THE VISUALIZED INTRACRANIAL CIRCULATION.. 4. 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 CPT II Codes: 3100F <Electronically signed by Rober Quintero MD in [place]> 01/11/18 1009 Dictated By: Rober Quintero MD Dictated Date/Time: 01/11/18 1009 Transcribed Date/Time: 01/11/18 100 Copy to: EKG Data: . Assess/Plan/Problems-Billing Assessment: A 67 y/o male with PMHx HTN, HLD and DM, who presented to ED with left sided weakness, dysarthria and hypoglycemia, admitted for observation and to rule out CVA. - Patient Problems (1) Weakness Current Visit: Yes Status: Acute Comment: - Symptoms esentially resolved - Lost likely secondary to hypoglycemia - Patient with some changes in his diabetic medicine past 6 weeks. - Neurology consult appreciated, MRI scheduled for tomorrow - Continue nuerologic checks every 4 hours, no changes overnight. (2) Hypoglycemia Current Visit: Yes Status: Acute Comment: - Corrected with D10 0.9% NS, now d/c'ed - POC blood glucose checks qACHS. now with hyperglycemia - Will cover with Lispro per SS (3) Hypertension Current Visit: Yes Status: Acute Comment: - Continue Amlodipine - stable at present time (4) Left sided sciatica Current Visit: Yes Status: Acute Comment: - LLE muscle spasms of unclear etiology - Flexeril helps, will continue (5) Diabetes Current Visit: Yes Status: Acute Comment: - Better glycemic control with short acting Lispro per SS - Will likely to d/c Glyburide upon discharge - F/U with Dr. Rosas (6) Leukocytosis Current Visit: Yes Status: Acute Comment: - Likely stress related, now resolving (7) DVT prophylaxis Current Visit: Yes Status: Acute Comment: - subQ Heparin (8) Full code status Current Visit: Yes Status: Acute Status and Disposition: Inpatient. Anticipate discharge when medically stable.
--- NOTE | 2018-01-12 12:03 | ECHO ---
Patient: NHAN FREEMAN [facility] Rec#: [id number] : 1950 Date: 01/12/2018 Age: 67y Height: 170.18 cm / 67.0 in Weight: 107.95 kg / 237.9 lbs Sex: M Admit Date#: 01/11/2018 Referring: Alesia Ambriz NP Reading: Jhony Aldana MD [employer]: Stephanie Schilling RDCS Transthoracic Echocardiogram Findings History: HTN,DM,temporal infarct. Technical Comments: The study quality is fair. Completed at 1155. The study is technically limited due to patient body habitus. Left Ventricle: The left ventricular chamber size is normal. Mild to moderate concentric left ventricular hypertrophy is observed. Global left ventricular wall motion and contractility are within normal limits. There is normal left ventricular systolic function. The estimated ejection fraction is 55-60%. Abnormal left ventricular diastolic filling is observed, consistent with impaired relaxation. Left Atrium: The left atrial chamber size is normal. Right Ventricle: The right ventricular cavity size is normal. The right ventricular global systolic function is normal. Right Atrium: The right atrial cavity size is normal. A patent foramen ovale is not demonstrated with color Doppler and agitated contrast. Aortic Valve: The aortic valve structure is not well visualized. The aortic valve is trileaflet. There is no evidence of aortic valve thickening. There is no evidence of aortic regurgitation. There is no evidence of aortic stenosis. Mitral Valve: The mitral valve leaflets appear normal. There is a trace of mitral regurgitation. Tricuspid Valve: The tricuspid valve leaflets are normal. There is a physiologic tricuspid regurgitation. Unable to estimate the right ventricular systolic pressure. Pulmonic Valve: The pulmonic valve appears normal in structure and function. There is no evidence of pulmonic regurgitation. There is no pulmonic stenosis. Pericardium: There is no significant pericardial effusion. A pericardial fat pad is visualized. Aorta: There is no dilatation of the ascending aorta. There is no dilatation of the aortic arch. There is no dilation of the aortic root. Pulmonary Artery: The main pulmonary artery is not well visualized. Venous: The venous system is not well visualized. Contrast: Normal saline was used as contrast for the bubble study. Intravenous contrast was used to help determine presence of intracardiac shunting. Conclusions There is normal left ventricular systolic function. The estimated ejection fraction is 55-60%. Global left ventricular wall motion and contractility are within normal limits. Mild to moderate concentric left ventricular hypertrophy is observed. Abnormal left ventricular diastolic filling is observed, consistent with impaired relaxation. Normal cardiac chamber sizes. Functionally benign heart valves. A patent foramen ovale is not demonstrated with color Doppler and agitated contrast. There is no prior echocardiogram available to compare with at this time. Measurements Name Value Normal Range RVIDd (AP) 2D 2.9 cm (0.9 - 2.6) RVDdMajor (2D) 2.9 cm (2.2 - 4.4) RAd ISD 4CH 4.9 cm (3.4 - 4.9) RA (A4C)W 2.9 cm (2.9 - 4.6) IVSd (2D) 1.3 cm (0.6 - 1) LVPWd (2D) 1.4 cm (0.6 - 1) LVIDd (2D) 3.7 cm (3.6 - 5.4) LVIDs (2D) 2.4 cm - LV FS (2D) 34 % (25 - 45) Aortic Annulus 1.9 cm (1.4 - 2.6) Ao root diameter (2D) 3.4 cm (2.1 - 3.5) Ascending Ao 3 cm (2.1 - 3.4) Aortic arch 2.9 cm (1.8 - 3.4) Descending Ao 0.5 cm - LA dimension (AP) 2D 4 cm (2.3 - 3.8) LAd ISD 4CH 4.9 cm (2.9 - 5.3) LA ISD 4CH W 4.1 cm (2.5 - 4.5) Name Value Normal Range LA ESV SP 4CH (A/L) 52 ml - LA ESV SP 2CH (A/L) 35 ml - LA ESV BP (A/L) 45 ml - LA ESV BP (A/L) index 20.81 ml/m2 - LA ESV SP 4CH (MOD) 49 ml - LA ESV SP 2CH (MOD) 33 ml - Name Value Normal Range MV E-wave Vmax 1 m/sec - MV deceleration time 124 msec - MV A-wave Vmax 1.5 m/sec - MV E:A ratio 0.67 ratio - LV septal e' Vmax 0.1 m/sec - LV lateral e' Vmax 0.08 m/sec - LV E:e' septal ratio 10 ratio - LV E:e' lateral ratio 12.5 ratio - Name Value Normal Range AV Vmax 1.4 m/sec - AV VTI 24.8 cm - AV peak gradient 8.15 mmHg - AV mean gradient 4.52 mmHg - LVOT Vmax 1.1 m/sec - LVOT VTI 16.4 cm - LVOT peak gradient 4.75 mmHg - LVOT mean gradient 1.86 mmHg - Name Value Normal Range PV Vmax 0.7 m/sec - PV peak gradient 1.74 mmHg -
[2018-01-12] MEDS ORDERED: Dextrose 50% Syringe 50 ML* 25 GM/50 ML SYRINGE IV PUSH PRN (14:50)
[2018-01-12] MEDS: Cyclobenzaprine TAB* 10 MG PO PRN ×2 (17:22→22:00)
[2018-01-12] MEDS: Insulin LISPRO* 1 UNITS UNIT SUBCUT SCH ×2 (17:23→22:01)
[2018-01-13] MEDS: traMADol TAB* 50 MG PO PRN ×3 (00:20→21:41)
[2018-01-13] MEDS: Cyclobenzaprine TAB* 10 MG PO PRN ×4 (05:46→23:49)
[2018-01-13] MEDS: Heparin VIAL(*) 5000 UNITS/ML VIAL (FIVE THOUSAND) SUBCUT SCH ×3 (05:47→21:42)
[2018-01-13] MEDS: Insulin LISPRO* 1 UNITS UNIT SUBCUT SCH ×4 (08:04→21:49)
[2018-01-13] MEDS: amLODIPine TAB* 5 MG PO SCH (08:04)
[2018-01-13] MEDS: Atorvastatin* 10 MG TAB PO SCH (08:04)
[2018-01-13] MEDS: Aspirin EC TAB* 81 MG TAB.EC PO SCH (08:04)
[2018-01-13] MEDS: Cholecalciferol TAB* 1000 UNITS PO SCH (08:04)
--- NOTE | 2018-01-13 17:05 | PN ---
Subjective Date of Service: 01/13/18 Interval History: Patient seen and examined at bedside. Has no complaints today. MRI brain was pushed back till this evening. Denies chest pain, SOB, dizziness, numbness or weakness. His blood sugar checks have been reasonable. Family History: Unchanged from Admission Social History: Unchanged from Admission Past Medical History: Unchanged from Admission Objective Active Medications: Amlodipine Besylate (Norvasc Tab*) 10 mg PO DAILY [facility] Last Admin: 01/13/18 08:04 Dose: 10 mg Aspirin (Aspirin Ec Tab*) 81 mg PO DAILY [facility] Last Admin: 01/13/18 08:04 Dose: 81 mg Atorvastatin Calcium (Lipitor*) 10 mg PO DAILY [facility] PRN Reason: Protocol Last Admin: 01/13/18 08:04 Dose: 10 mg Cholecalciferol (Vitamin D Tab*) 2,000 units PO DAILY [facility] Last Admin: 01/13/18 08:04 Dose: 2,000 units Cyclobenzaprine HCl (Flexeril Tab*) 10 mg PO TID PRN PRN Reason: SPASMS Last Admin: 01/13/18 11:09 Dose: 10 mg Dextrose (D50w Syringe 50 Ml*) 12.5 gm IV PUSH .FOR FS < 60 - SS PRN PRN Reason: FS < 60 Last Admin: 01/11/18 15:37 Dose: 12.5 gm Dextrose (D50w Syringe 50 Ml*) 12.5 gm IV PUSH .FOR FS < 60 - SS PRN PRN Reason: FS < 60 Heparin Sodium (Porcine) (Heparin Vial(*)) 5,000 units SUBCUT Q8HR [facility] Last Admin: 01/13/18 14:34 Dose: 5,000 units Hydralazine HCl (Apresoline Iv*) 5 mg IV SLOW PU Q6H PRN PRN Reason: BLOOD PRESSURE Insulin Human Lispro (Humalog*) 0 units SUBCUT ACHS [facility] PRN Reason: Protocol Last Admin: 01/13/18 12:29 Dose: 3 units Tramadol HCl (Ultram*) 50 mg PO Q6HR PRN PRN Reason: PAIN Last Admin: 01/13/18 14:35 Dose: 50 mg Vital Signs - 8 hr 01/13/18 01/13/18 01/13/18 11:02 11:09 13:00 Temperature 98.3 F Pulse Rate 97 Respiratory 20 18 16 Rate Blood Pressure 154/85 (mmHg) O2 Sat by Pulse 96 Oximetry 01/13/18 01/13/18 14:35 15:07 Temperature Pulse Rate 101 Respiratory 16 16 Rate Blood Pressure 147/90 (mmHg) O2 Sat by Pulse 96 Oximetry Oxygen Devices in Use Now: None Appearance: Appears comfortable and in NAD Eyes: No Scleral Icterus, PERRLA Ears/Nose/Mouth/Throat: Clear Oropharnyx, Mucous Membranes Moist Neck: NL Appearance and Movements; NL JVP, Trachea Midline Respiratory: Symmetrical Chest Expansion and Respiratory Effort, Clear to Auscultation Cardiovascular: NL Sounds; No Murmurs; No JVD, RRR Abdominal: NL Sounds; No Tenderness; No Distention Extremities: No Edema, No Clubbing, Cyanosis Skin: No Rash or Ulcers Neurological: Alert and Oriented x 3, NL Sensation, NL Muscle Strength and Tone Nutrition: Taking PO's Result Diagrams: 01/12/18 06:07 01/11/18 09:05 Additional Lab and Data: Lab Results 01/11/18 01/11/18 01/11/18 Range/Units 08:39 09:05 09:05 WBC 16.4 H (3.5-10.8) 10^3/ul RBC 5.12 (4.0-5.4) 10^6/ul Hgb 15.8 (14.0-18.0) g/dl Hct 46 (42-52) % MCV 90 (80-94) fL MCH 31 (27-31) pg MCHC 34 (31-36) g/dl RDW 14 (10.5-15) % Plt Count 239 (150-450) 10^3/ul MPV 8.2 (7.4-10.4) um3 Neut % (Auto) 87.7 H (38-83) % Lymph % (Auto) 6.2 L (25-47) % [place] % (Auto) 5.6 (0-7) % Eos % (Auto) 0.1 (0-6) % Baso % (Auto) 0.4 (0-2) % Absolute Neuts (auto) 14.4 H (1.5-7.7) 10^3/ul Absolute Lymphs (auto) 1.0 (1.0-4.8) 10^3/ul Absolute Monos (auto) 0.9 H (0-0.8) 10^3/ul Absolute Eos (auto) 0 (0-0.6) 10^3/ul Absolute Basos (auto) 0.1 (0-0.2) 10^3/ul Absolute Nucleated RBC 0 10^3/ul Nucleated RBC % 0.1 INR (Anticoag Therapy) 1.03 H (0.77-1.02) APTT 32.0 (26.0-36.3) seconds Sodium (139-145) mmol/L Potassium (3.5-5.0) mmol/L Chloride (101-111) mmol/L Carbon Dioxide (22-32) mmol/L Anion Gap (2-11) mmol/L BUN (6-24) mg/dL Creatinine (0.67-1.17) mg/dL Est GFR ( Amer) (>60) Est GFR (Non-Af Amer) (>60) BUN/Creatinine Ratio (8-20) Glucose (70-100) mg/dL POC Glucose (mg/dL) 41 L (70-100) mg/dL Lactic Acid (0.5-2.0) mmol/L Calcium (8.6-10.3) mg/dL Total Bilirubin (0.2-1.0) mg/dL AST (13-39) U/L ALT (7-52) U/L Alkaline Phosphatase (34-104) U/L Troponin I (<0.04) ng/mL Total Protein (6.4-8.9) g/dL Albumin (3.2-5.2) g/dL Globulin (2-4) g/dL Albumin/Globulin Ratio (1-3) Triglycerides mg/dL Cholesterol mg/dL LDL Cholesterol mg/dL HDL Cholesterol mg/dL Urine Color Urine Appearance Urine pH (5-9) Ur Specific [place] (1.010-1.030) Urine Protein (Negative) Urine Ketones (Negative) Urine Blood (Negative) Urine Nitrate (Negative) Urine Bilirubin (Negative) Urine Urobilinogen (Negative) Ur Leukocyte Esterase (Negative) Urine WBC (Auto) (Absent) Urine RBC (Auto) (Absent) Urine Bacteria (Absent) Hyaline Casts (Absent) Urine Glucose (Negative) 01/11/18 01/11/18 01/11/18 Range/Units 09:05 09:05 10:27 WBC (3.5-10.8) 10^3/ul RBC (4.0-5.4) 10^6/ul Hgb (14.0-18.0) g/dl Hct (42-52) % MCV (80-94) fL MCH (27-31) pg MCHC (31-36) g/dl RDW (10.5-15) % Plt Count (150-450) 10^3/ul MPV (7.4-10.4) um3 Neut % (Auto) (38-83) % Lymph % (Auto) (25-47) % [place] % (Auto) (0-7) % Eos % (Auto) (0-6) % Baso % (Auto) (0-2) % Absolute Neuts (auto) (1.5-7.7) 10^3/ul Absolute Lymphs (auto) (1.0-4.8) 10^3/ul Absolute Monos (auto) (0-0.8) 10^3/ul Absolute Eos (auto) (0-0.6) 10^3/ul Absolute Basos (auto) (0-0.2) 10^3/ul Absolute Nucleated RBC 10^3/ul Nucleated RBC % INR (Anticoag Therapy) (0.77-1.02) APTT (26.0-36.3) seconds Sodium 135 L (139-145) mmol/L Potassium 4.3 (3.5-5.0) mmol/L Chloride 101 (101-111) mmol/L Carbon Dioxide 26 (22-32) mmol/L Anion Gap 8 (2-11) mmol/L BUN 19 (6-24) mg/dL Creatinine 1.14 (0.67-1.17) mg/dL Est GFR ( Amer) 82.4 (>60) Est GFR (Non-Af Amer) 64.1 (>60) BUN/Creatinine Ratio 16.7 (8-20) Glucose 177 H (70-100) mg/dL POC Glucose (mg/dL) (70-100) mg/dL Lactic Acid 1.2 (0.5-2.0) mmol/L Calcium 9.5 (8.6-10.3) mg/dL Total Bilirubin 0.50 (0.2-1.0) mg/dL AST 16 (13-39) U/L ALT 14 (7-52) U/L Alkaline Phosphatase 81 (34-104) U/L Troponin I 0.02 (<0.04) ng/mL Total Protein 7.0 (6.4-8.9) g/dL Albumin 4.3 (3.2-5.2) g/dL Globulin 2.7 (2-4) g/dL Albumin/Globulin Ratio 1.6 (1-3) Triglycerides 98 mg/dL Cholesterol 188 mg/dL LDL Cholesterol 123 mg/dL HDL Cholesterol 45.0 mg/dL Urine Color Yellow Urine Appearance Clear Urine pH 5.0 (5-9) Ur Specific [place] 1.028 (1.010-1.030) Urine Protein 1+(30 mg/dl) A (Negative) Urine Ketones Trace A (Negative) Urine Blood Negative (Negative) Urine Nitrate Negative (Negative) Urine Bilirubin Negative (Negative) Urine Urobilinogen Negative (Negative) Ur Leukocyte Esterase Negative (Negative) Urine WBC (Auto) Trace(0-5/hpf) (Absent) Urine RBC (Auto) Trace(0-2/hpf) (Absent) Urine Bacteria Absent (Absent) Hyaline Casts Present A (Absent) Urine Glucose 3+(>=500 mg/dl) A (Negative) Microbiology and Other Data: . Diagnostic Imaging: . EKG Data: . Assess/Plan/Problems-Billing Assessment: A 67 y/o male with PMHx HTN, HLD and DM, who presented to ED with left sided weakness, dysarthria and hypoglycemia, admitted for observation and to rule out CVA. - Patient Problems (1) Weakness Current Visit: Yes Status: Acute Comment: - Symptoms esentially resolved - Lost likely secondary to hypoglycemia - Patient with some changes in his diabetic medicine past 6 weeks. - Neurology consult appreciated, MRI scheduled for this evening - Continue nuerologic checks every 4 hours, no changes overnight. (2) Hypoglycemia Current Visit: Yes Status: Acute Comment: - Corrected with D10 0.9% NS, now d/c'ed - POC blood glucose checks qACHS. now with hyperglycemia - Will cover with Lispro per SS - Discussed with Dr. Rosas. Plan to cut down his Lantus to 35 units, Glipizide to half current dose, and to F/U with him next week. - Will adjust to the new regimen upon discharge (3) Hypertension Current Visit: Yes Status: Acute Comment: - Continue Amlodipine - stable at present time (4) Left sided sciatica Current Visit: Yes Status: Acute Comment: - LLE muscle spasms of unclear etiology - Flexeril helps, will continue (5) Diabetes Current Visit: Yes Status: Acute Comment: - Better glycemic control with short acting Lispro per SS - F/U with Dr. Rsoas (6) Leukocytosis Current Visit: Yes Status: Acute Comment: - Likely stress related, now resolving (7) DVT prophylaxis Current Visit: Yes Status: Acute Comment: - subQ Heparin (8) Full code status Current Visit: Yes Status: Acute Status and Disposition: Inpatient. Anticipate discharge when medically stable.
--- NOTE | 2018-01-13 19:56 | RAD ---
Indication: Possible stroke. Differential includes hypoglycemia. Comparison: January 11, 2018 CT. Technique: [place] 1.5 [employer] RI672S with GEM suite. MRI brain without contrast. Report: Diffusion series is negative for acute or subacute ischemia. Susceptibility series is negative for stigmata of hemosiderin deposition to indicate previous hemorrhage. Moderate prominence of the cerebral sulci reflecting change. Unremarkable ventricles and basal cisterns. Encephalomalacia at the posterior RIGHT temporal lobe extending to the occipital lobe corresponding with the CT finding most consistent with sequela of previous ischemic infarct. Mildly prominent perivascular spaces at the brainstem and basal ganglia. Mild burden of focal increased T2 signal at the periventricular and subcortical white matter of the cerebral hemispheres most consistent with sequela of chronic small vessel ischemic disease. No suspicious intra-axial or extra-axial lesions or fluid collections. Preserved major intracranial flow-voids. Unremarkable orbital contents. No suspicious calvarial or skull base lesions evident. Clear paranasal sinuses and mastoid air spaces. Unremarkable scalp. IMPRESSION: 1. No evidence for acute or subacute ischemia. 2. 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 3. Involutional change and stigmata of chronic small vessel ischemic disease.
[2018-01-14] MEDS: traMADol TAB* 50 MG PO PRN (04:52)
[2018-01-14] MEDS: Heparin VIAL(*) 5000 UNITS/ML VIAL (FIVE THOUSAND) SUBCUT SCH (04:52)
[2018-01-14] MEDS: Insulin LISPRO* 1 UNITS UNIT SUBCUT SCH (08:28)
[2018-01-14] MEDS: Atorvastatin* 10 MG TAB PO SCH (08:41)
[2018-01-14] MEDS: amLODIPine TAB* 5 MG PO SCH (08:41)
[2018-01-14] MEDS: Cholecalciferol TAB* 1000 UNITS PO SCH (08:41)
[2018-01-14] MEDS: Aspirin EC TAB* 81 MG TAB.EC PO SCH (08:41)
[2018-01-14 08:48] VITALS: BP 129/85
--- NOTE | 2018-01-15 03:26 | DS ---
CC: Dr. Cárdenas; Dr. Rosas * DISCHARGE SUMMARY: DATE OF ADMISSION: 01/11/18 DATE OF DISCHARGE: 01/14/18 PATIENT OF: Dr. Astrid Dyer. ATTENDING HOSPITALIST: Dr. Jake Lowe.* (DICATED BY SHELLI SEGAL) ADMISSION DIAGNOSES: 1. Left arm weakness. 2. Possible right facial droop. 3. Dysarthria and hypoglycemia. 4. Hypertension. 5. Hyperlipidemia. 6. Diabetes mellitus type 2. DISCHARGE DIAGNOSES: 1. Left arm weakness. 2. Possible right facial droop. 3. Dysarthria and hypoglycemia. 4. Hypertension. 5. Hyperlipidemia. 6. Diabetes mellitus type 2. ADMITTING PHYSICIAN: Dr. Astrid Dyer. CONSULTATION: Dr. Fraser, neurologist. PROCEDURES: None. PRIMARY CARE PROVIDER: Dr. Cárdenas. KENNEL KEEPER: Dr. Lenin Roass. HISTORY OF PRESENT ILLNESS: Mr. 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 According to the patient's in the emergency room, the patient started thrashing in the bed around 2 a.m. and had some right facial droop, dysarthria as well as left- sided weakness. He also described few weeks of intermittent left lower extremity muscle spasm for which he has been worked up as an outpatient. He informs me that he changed his diabetic medications about 6 weeks ago and started taking Byetta injections on a weekly basis and noticed that his glucose have been in the 90s every morning. He denies any headache, dizziness, blurred vision; however, he describes some dysarthria and slight right facial droop that resolved in the emergency room. The patient was noted also to have some weakness in his left upper extremity that mostly resolved during his stay in the ED. His slurred speech has recovered as well in the emergency room and he was found to have a blood glucose level of 41 upon arrival. He received IV dextrose and had some laboratory workup that was drawn. His chest x- ray was negative and his head CTA showed no stenosis and right temporal artery encephalomalacia consistent with a remote infarct. He had an NIH score of 4 and we were asked to see the patient to discuss possible admission. HOSPITAL COURSE: The patient was admitted on 01/11/18 under hospitalist services. A neurologic consult was obtained by Dr. Fraser seeing the patient and EEG was ordered that showed no focal seizure activities. The patient continued to be monitored closely in the telemetry unit with neuro checks every 2 hours that eventually changed to every 4 hours with no significant neurologic deficit during his admission. His presentation was left upper extremity weakness and dysarthria, all resolved since admission with no recurrent episodes. He continued to have some intermittent left lower extremity spasm that was relieved using Flexeril as needed. The patient was evaluated over the weekend and laboratory workup was drawn that revealed no significant changes. His diabetic medication was on hold and the patient was covered with Humalog sliding scale with better glycemic control. He had brain MRI on Saturday afternoon that revealed no evidence of any acute ischemic changes or infarcts. The patient continued to improve and I had a conversation with Dr. Rosas regarding his diabetic medication. Recommendation was made to decrease his dose of Lantus at night as well as cutting down his dose of glimepiride to half upon discharge. The patient was seen this morning and he appeared to be stable. His vitals were reviewed. His exam was essentially unremarkable. His heart was regular, rate, and rhythm with no rubs, murmurs, or gallops. His lungs were clear to auscultation bilaterally. His neurologic checks have been consistent and showed no neurological deficits. He will be ready to be discharged to home today and will follow up with Dr. Rosas next week. DISCHARGE MEDICATIONS: His discharge medications include: 1. Norvasc/benazepril, which is Lotrel, 06/14 one cap p.o. daily. 2. Aspirin 81 mg p.o. daily. 3. Vitamin D tablets 2000 units p.o. daily. 4. Flexeril 10 mg p.o. t.i.d. as needed for muscle spasm. 5. Byetta injections 5 mcg subcutaneously once weekly. 6. Glimepiride 2 mg p.o. b.i.d. 7. Lantus insulin 35 units subcutaneously at q.p.m. 8. Lovastatin 40 mg p.o. daily. 9. Mobic 7.5 mg p.o. b.i.d. 10. Metformin 1000 mg p.o. b.i.d. 11. Ultram 50 mg p.o. q.6 hours as needed for pain. SHELLI SEGAL [id number]/[facility] #: [id number] [facility]IVERSIDE HOSPITALGarett
== END 2018-01-14 10:34 | disposition home or self-care (01) | DRG 420 ==
LOC: ED 08:23 → MEDTELE 10:24 → OBSVTOIN 01-12 10:00
PROVIDERS: ADMIT Internal Medicine; ATTEND Internal Medicine
DX: E11.649 Type 2 diabetes mellitus with hypoglycemia without coma (principal); R53.1 Weakness; I45.10 Unspecified right bundle-branch block; R47.1 Dysarthria and anarthria; M54.32 Sciatica, left side; I10 Essential (primary) hypertension; D72.829 Elevated white blood cell count, unspecified; E78.5 Hyperlipidemia, unspecified; R29.810 Facial weakness; Z86.73 Personal history of transient ischemic attack (TIA), and cerebral infarction without residual deficits; Z85.828 Personal history of other malignant neoplasm of skin; Z79.84 Long term (current) use of oral hypoglycemic drugs; Z79.4 Long term (current) use of insulin; Z79.899 Other long term (current) drug therapy; Z82.49 Family history of ischemic heart disease and other diseases of the circulatory system; Z83.3 Family history of diabetes mellitus; Z80.8 Family history of malignant neoplasm of other organs or systems; Z80.41 Family history of malignant neoplasm of ovary
CPT/HCPCS: 36415; 70496; 70498; 70551; 71045; 80053; 80061; 81003; 81015; 82947; 83036; 83605; 84484; 85025; 85610; 85730; 87086; 93005; 93306; 99284; A9270-GY; G0378; J1644; Q9967

== ENCOUNTER 2018-05-06 07:47 | Inpatient (IN) | payer BC, MEDICARE ==
[~2018-05-06 07:47] MED LIST: Buffered Lidocaine 0.9% SYRIN* 5 ML/SYR SYRINGE INTRADERM ONE; Dexamethasone TAB* 4 MG PO ONE; DiMENhydriNATE IV* 50 MG/ML VIAL IV PUSH PRN; Famotidine IV* 10 MG/ML 2 ML (20 mg) IV ONE; Morphine INJ* 2 MG/ML 1 ML SYRINGE (TWO MG - NEW SYRINGE VERSION) IV PRN; Naloxone* 0.4 MG/ML 1 ML VIAL IV PRN; Ondansetron TAB* 4 MG PO ONE; PROCHLORPERAZINE INJ 5 MG/ML 2 ML VIAL IV PRN; Scopolamine 1.5 mg* PATCH TRANSDERM PRN; fentaNYL* 50 MCG/ML 2 ML VIAL (100 MCG VIAL) IV PRN
[2018-05-06] MEDS ORDERED: Atracurium* 10 MG/ML 10 ML VIAL ONE (08:15)
[2018-05-06] MEDS ORDERED: fentaNYL* 50 MCG/ML 2 ML VIAL (100 MCG VIAL) ONE (08:15)
[2018-05-06] MEDS ORDERED: Midazolam* 1 MG/ML 5 ML VIAL (5 MG) ONE (08:15)
[2018-05-06] MEDS ORDERED: KETAMINE HCL* 50 MG/ML 10 ML VIAL ONE (08:15)
[2018-05-06] MEDS ORDERED: Dexamethasone TAB* 4 MG ONE (08:23)
[2018-05-06] MEDS ORDERED: Ondansetron ODT TAB* 4 MG ONE (08:23)
[2018-05-06] MEDS ORDERED: Famotidine IV* 10 MG/ML 2 ML (20 mg) ONE (08:23)
[2018-05-06] MEDS ORDERED: ceFAZolin 2 GM in NS PREMIX(*) 2 GM/100 ML BAG IVPB ONE (08:25)
[2018-05-06] MEDS ORDERED: Thrombin 5,000 UNITS* 1 APPLIC KIT - topical use - TOPICAL ONE (09:14)
[2018-05-06] MEDS ORDERED: Bacitracin IV* 50,000 UNITS INJ ONE (09:14)
[2018-05-06] MEDS ORDERED: Lidocain 1% EPI 1:100,000 * 30 ML MDV ONE (09:14)
[2018-05-06] MEDS ORDERED: Lidocaine 2% PF * 5 ML VIAL ONE (09:49)
[2018-05-06] MEDS ORDERED: Propofol* 10 MG/ML 20 ML BTL IV PUSH ONE (09:49)
[2018-05-06] MEDS ORDERED: Glycopyrrolate IV* 0.2 MG/ML 1 ML VIAL ONE ×2 (09:49→10:59)
[2018-05-06] MEDS ORDERED: Morphine VIAL* 10 MG/ML 1 ML VIAL ONE (09:51)
--- NOTE | 2018-05-06 10:41 | RAD ---
Indication: L4-L5 discectomy Single lateral view of the lumbar spine taken in the operating room demonstrates localization of the L4-L5 interspace. IMPRESSION: Localization of the L4-L5 interspace.
[2018-05-06] MEDS ORDERED: HYDROcodone/ACETAMIN 5-325 MG* 1 TAB PO PRN (10:47)
[2018-05-06] MEDS ORDERED: Magnesium Hydroxide LIQ* 30 ML UDC PO PRN (10:47)
[2018-05-06] MEDS ORDERED: Ondansetron INJ* 2 MG/ML VIAL IV PRN (10:47)
[2018-05-06] MEDS: Acetaminophen TAB* 325 MG PO PRN ×2 (13:57→19:23)
[2018-05-06] MEDS: Insulin LISPRO* 1 UNITS UNIT SUBCUT SCH ×3 (14:42→21:47)
[2018-05-06] MEDS: Atorvastatin* 20 MG TAB PO SCH (18:14)
[2018-05-07] MEDS: Acetaminophen TAB* 325 MG PO PRN ×3 (03:27→21:29)
--- NOTE | 2018-05-07 07:54 | PN ---
Progress Note - Progress Note Date of Service: 05/07/18 SOAP: Subjective: [S/p lumbar decompression L3-4 and L4-5, POD #1. Pre-op lower extremity symptoms improved with ambulation. Ambulating independently. Good appetite. Reports low back incisional pain. Denies headache, nausea. ] Objective: [ Vital Signs: Temp Pulse Resp BP Pulse Ox 98.2 F 88 20 120/70 97 05/07/18 03:05/07/18 03:05/07/18 03:05/07/18 03:05/07/18 03:09 General: Alert and laying comfortably in bed. Neuro: Motor and sensory intact. Incision: Intact with americo, dressing clean and dry. Wound drain not functioning well overnight, manipulated this morning and now draining Wound drain output 05/06/18 05/06/18 05/06/18 13:57 18:48 22:24 Output, UTE #1 40 3 1 05/07/18 03:00 Output, UTE #1 0 ] Assessment: [Satisfactory post-op. Wound drain requires further monitoring. ] Plan: [1. Admit to inpatient 2. Encourage up out of bed and ambulation 3. Continue pain management 4. Spoke with Dr. Rosas this morning to update on patient's status]
[2018-05-07] MEDS: amLODIPine TAB* 5 MG PO SCH (08:12)
[2018-05-07] MEDS: Lisinopril TAB* 10 MG PO SCH (08:12)
[2018-05-07] MEDS: Insulin LISPRO* 1 UNITS UNIT SUBCUT SCH ×4 (08:12→21:30)
[2018-05-07] MEDS: Atorvastatin* 20 MG TAB PO SCH (17:47)
[2018-05-08] MEDS: Acetaminophen TAB* 325 MG PO PRN (03:59)
[2018-05-08 07:39] VITALS: BP 114/68
[2018-05-08] MEDS: Insulin LISPRO* 1 UNITS UNIT SUBCUT SCH (08:42)
[2018-05-08] MEDS: amLODIPine TAB* 5 MG PO SCH (08:42)
[2018-05-08] MEDS: Lisinopril TAB* 10 MG PO SCH (08:42)
--- NOTE | 2018-05-08 08:55 | PN ---
Progress Note - Progress Note Date of Service: 05/08/18 SOAP: Subjective: [S/p decompressive lumbar laminectomy L3-4, L4-5, POD #2. Patient feeling well and denies significant pain. Taking tylenol for pain management. Ambulating frequently, pre-op symptoms improved. Eating and drinking well, no nausea. Denies headache, fever, chills. ] Objective: [ Vital Signs: Temp Pulse Resp BP Pulse Ox 97.8 F 84 20 114/68 99 05/08/18 07:34 05/08/18 07:34 05/08/18 07:35 05/08/18 07:34 05/08/18 07:34 General: Alert, laying comfortably in bed. NAD. Neuro: Motor and sensory intact. Incision: Intact with americo. Minimal ecchymosis. Drain discontinued today without complication. No swelling or erythema. Wound drain output 05/06/18 05/06/18 05/06/18 13:57 18:48 22:24 Output, UTE #1 40 3 1 05/07/18 05/07/18 05/07/18 03:00 08:01 11:14 Output, UTE #1 0 30 35 05/07/18 05/07/18 05/07/18 14:35 18:00 21:32 Output, UTE #1 30 25 8 05/08/18 05/08/18 02:13 06:12 Output, UTE #1 5 0 ] Assessment: [Satisfactory post-op.] Plan: [1. Discharge home today 2. Discharge instructions discussed. ]
[2018-05-09] MEDS ORDERED: Scopolamine PATCH Remove* 1 NOTE MISC PATCH OFF ONE (05:30)
--- NOTE | 2018-05-15 00:04 | OP ---
DATE OF OPERATION: 05/06/18 - ROOM #342 DATE OF : 50 SURGEON: Kvng Bates MD COAGULATING BATH MIXER: SHELLI Gilliam. ANESTHESIA: General. PRE-OP DIAGNOSES: Lumbar spinal stenosis L3-4 and L4-5, herniated nucleus pulposus L4-5 on the left. POST-OP DIAGNOSES: Lumbar spinal stenosis L3-4, L4-5. OPERATIVE PROCEDURE: Decompressive lumbar laminectomy L3-4, L4-5 with bilateral foraminotomies L3-4, L4-5. DESCRIPTION OF PROCEDURE: After satisfactory general anesthesia was obtained, the patient was placed on the operating room table in a prone position with the chest supported on the Ron frame and the back slightly flexed. The lumbar region was then clipped, prepped, and draped in sterile manner for lumbar laminectomy and a skin incision outlined from L3 to L5. This incision was infiltrated with 1% Xylocaine with epinephrine, after which it was turned down sharply to the level of the lumbar fascia. The fascia was divided along the spinous processes from L3 to L5 and the paraspinal musculature stripped away from these posterior elements using the periosteal elevator and monopolar cautery. An intraoperative x-ray was obtained verifying proper interspace localization. After which a decompression was carried out by removing the spinous processes of L3 and L4 as well as superior aspect of the spinous process of L5 with a combination of Jim rib shear and Leksell rongeur. Decompression was initially carried out at L3-4 with the remaining portion of the base of the spinous process of L3 and inferior aspect of the lamina was thinned out as well as the medial facet complex. The decompression was then carried out with Kerrison rongeurs. This was carried superiorly until the attachment of ligamentum flavum was taken down. The pathology at this level was noted to be a combination of ligamentous thickening and bony hypertrophy. A generous decompression was carried out at this level until both L4 nerve roots were noted to be free in their course. A similar decompression was then carried out at L4-5. The pathology at this level was also a combination of ligamentous hypertrophy as well as bony facet hypertrophy. Preoperative imaging had suggested disc herniation at this level. After decompression had been carried out, the area beneath the L4-5 nerve root was palpated and there was noted to be heat up calcified disc material beneath the nerve root. This was not disturbed. After the decompression, both the L4 and L5 nerve roots were noted to be free in their course bilaterally. After assuring adequate hemostasis, the wound was thoroughly irrigated, after which Gelfoam was placed over the laminectomy defects. A drain was placed in the epidural space and tunneled out toward the left side. The fascia was then reapproximated with 0 Vicryl suture. The subcutaneous tissue was closed with 3-0 Vicryl suture and the skin closed with skin clips. The estimated blood loss was 100 cc and the final sponge, padding, and needle counts were correct. The patient was taken to the recovery room, extubated and in stable condition. [id number]/[facility] #: [id number] PRATIBHA
== END 2018-05-08 10:05 | disposition home or self-care (01) | DRG 320 ==
LOC: OR 07:47 → SSU 07:54 → OBSVTOIN 05-07 07:54
PROVIDERS: ADMIT Neurological Surgery; ATTEND Neurological Surgery
PROC: 01NB0ZZ Release Lumbar Nerve, Open Approach (ICD-10-PCS; principal; 2018-05-07)
DX: M48.062 Spinal stenosis, lumbar region with neurogenic claudication (principal); E11.9 Type 2 diabetes mellitus without complications; E78.5 Hyperlipidemia, unspecified; E66.3 Overweight; I10 Essential (primary) hypertension; E29.1 Testicular hypofunction; R26.9 Unspecified abnormalities of gait and mobility; Z68.29 Body mass index [BMI] 29.0-29.9, adult; Z85.828 Personal history of other malignant neoplasm of skin; Z80.41 Family history of malignant neoplasm of ovary; M51.16 Intervertebral disc disorders with radiculopathy, lumbar region
CPT/HCPCS: 72100; A9270-GY; J0690; J2250; J2270; J2704; J3010; J8540